=== PATIENT | male | born 1965 | race Caucasian/White ===

== ENCOUNTER 2021-08-06 08:20 | Emergency (ER) | payer OTHER ==
[~2021-08-06] VITALS: Ht 177.8 cm; Wt 102.1 kg
--- NOTE | 2021-08-06 08:41 | ED Lower Extremity ---
General Chief Complaint: Lower Extremity Stated Complaint: RT ANKLE INJ Source: patient History of Present Illness Date Seen by Provider: Aug 06, 2021 Time Seen by Provider: 08:24 Initial Comments 55-year-old male presenting with right foot pain after rolling his ankle last night. He states that he was having some discomfort after he had rolled his ankle last Wednesday. Last night he had rolled his ankle again and 2 hours after that he had pain to the point that he was unable to bear weight. He has tried his chronic Ibuprofen medicine for pain with little to no improvement. He also has tried heat without significant improvement. he has had some chronic swelling to the ankle since he had an infection in the ankle several years ago. He denies hitting his head or having other injuries with rolling his ankle last night. Onset: yesterday Severity: moderate Pain/Injury Location: right foot, right ankle Method of Injury: twisted (rolled ankle) Modifying Factors: Worse With Movement, Worse With Other (trying to bear weight) Allergies and Home Medications Allergies Coded Allergies: omeprazole (Verified Allergy, Unknown, Rash, 08/06/21) Patient Home Medication List Home Medication List Reviewed: Yes Hydrocodone/Acetaminophen (Hydrocodone-Acetamin 5-325 mg) 1 Each Tablet, 1 TAB PO Q6H PRN for PAIN-SEVERE (8-10) Prescribed by: QIANA ROSS on 08/06/21 0950 Review of Systems Constitutional: No chills, No fever EENTM: no symptoms reported Respiratory: no symptoms reported Cardiovascular: no symptoms reported Gastrointestinal: no symptoms reported Genitourinary: no symptoms reported Musculoskeletal: see HPI, other (pain in right foot since he rolled his ankle) Skin: change in color (mild erythema to lateral foot) Psychiatric/Neurological: Paresthesia (tingling in toes since injury last night) Past Bcclfsd-Tfnexq-Tmhrjx Hx Patient Social History Tobacco Use?: No Past Medical History Surgeries: Yes Orthopedic Physical Exam Vital Signs Vital Signs - First Documented 08/06/21 08/06/21 08:24 09:54 Temp 36.4 Pulse 79 Resp 16 B/P (MAP) 144/87 (106) Pulse Ox 97 O2 Delivery Room Air Capillary Refill : Height, Weight, BMI Height: '" Weight: lbs. oz. 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, alert, oriented x 3 Skin: warm/dry, other (mild erythema to lateral foot but no tenderness over 5th metatarsal) Progress/Results/Core Measures Results/Orders My Orders Orders - QIANA ROSS MD Foot 3 View Right (08/06/21 08:34) Ankle 3 View Right (08/06/21 08:34) Elevate Affected Extremity (08/06/21 08:35) Hydrocodone/Apap 5/325 Tablet (Lortab 5 (08/06/21 09:46) Post-Op Shoe (08/06/21 09:46) Vital Signs/I&O 08/06/21 08/06/21 08:24 09:54 Temp 36.4 Pulse 79 86 Resp 16 18 B/P (MAP) 144/87 (106) 137/79 Pulse Ox 97 O2 Delivery Room Air Room Air Progress Progress Note #1: Progress Note Obtain x-ray of the right foot and ankle. Progress Note #2: Progress Note He had no definite acute fracture or dislocation on his x-rays of his foot or ankle. Treat symptomatically with postop shoe and weightbearing as tolerated. Prescribe a few hydrocodone for severe pain. Counseled to check back with his primary and they may have to order an MRI or referral to orthopedics or podiatry about his foot. Diagnostic Imaging Diagonstic Imaging: Xray Plain Films/CT/US/NM/MRI: ankle Comments [facility], [place] NAME: [facility] REC#: [id number] PT STATUS: DEP ER : 1965 PHYSICIAN: QIANA ROSS MD ADMIT DATE: 08/06/21/ER FS Signed Date of Exam:08/06/21 ANKLE 3 VIEW RIGHT INDICATION: Right ankle injury with pain. AP, oblique and lateral views of the right ankle are obtained. No acute fracture or malalignment is identified. Ankle mortise appears to be maintained. There is no lytic or sclerotic focus. Diffuse swelling is present. IMPRESSION: Ankle swelling may indicate underlying ligamentous injury however no acute osseous abnormality is seen. Dictated by: Dictated on workstation # [id number] Dict: 08/06/21 0851 Trans: 08/06/21 130 CV [id number] Interpreted by: CHECO AREVALO MD Electronically signed by: CHECO AREVALO MD 08/06/21 1302 Reviewed: Reviewed by Me Diagonstic Imaging: Xray Plain Films/CT/US/NM/MRI: other (Right foot) Comments [facility], [place] NAME: [facility] REC#: [id number] PT STATUS: REG ER : 1965 PHYSICIAN: QIANA ROSS MD ADMIT DATE: 08/06/21/ER FS Draft Date of Exam:08/06/21 FOOT 3 VIEW RIGHT INDICATION: Right foot pain and injury. TIME OF EXAM: 8:43 AM 3 views of the right foot were obtained. The metatarsals appear to be intact. The phalanges are intact. Midfoot demonstrates some well-corticated osseous densities along the dorsum of the midfoot at the level of the navicular bone, likely old avulsion fragments. No acute fractures are identified. IMPRESSION: Chronic changes. No acute bony abnormality is detected. Dictated on workstation # [id number] Dict: 08/06/21 0852 Trans: 08/06/21 0913 CV [id number] Interpreted by: ZELDA RONQUILLO MD Electronically signed by: Reviewed: Reviewed by Me Departure Impression Primary Impression: Acute pain of right foot Additional Impression: Unspecified sprain of right foot, initial encounter Disposition: 01 HOME, SELF-CARE Condition: Stable Departure-Patient Inst. Decision time for Depature: 09:47 Referrals: KAREN GARCIA MD (PCP/Family) Primary Care Physician Patient Instructions: Foot Sprain ED, Using Cold for Pain, Opioids for Short- Term Treatment of Pain ED Add. Discharge Instructions: Use the postop shoe to stabilize your foot and limit movement. Try to ice and elevate your foot to help with pain. Continue with your ibuprofen for chronic pain and inflammation. For acute severe pain use the hydrocodone. If your symptoms are not improving over the next 5 to 10 days check back with your primary provider as they may need to order an MRI or have you see orthopedics or podiatry about your foot. All discharge instructions reviewed with patient and/or family. Voiced understanding. Scripts Hydrocodone/Acetaminophen (Hydrocodone-Acetamin 5-325 mg) 1 Each Tablet 1 TAB PO Q6H PRN for PAIN-SEVERE (8-10) for 5 Days, #20 TAB 0 Refills Prov: QIANA ROSS MD 08/06/21 QIANA ROSS MD Aug 06, 2021 08:41
--- NOTE | 2021-08-06 08:55 | Diagnostic Imaging Report ---
INDICATION: Right ankle injury with pain. AP, oblique and lateral views of the right ankle are obtained. No acute fracture or malalignment is identified. Ankle mortise appears to be maintained. There is no lytic or sclerotic focus. Diffuse swelling is present. IMPRESSION: Ankle swelling may indicate underlying ligamentous injury however no acute osseous abnormality is seen. Dictated by: Dictated on workstation # [id number]
--- NOTE | 2021-08-06 09:14 | Diagnostic Imaging Report ---
INDICATION: Right foot pain and injury. TIME OF EXAM: 8:43 AM 3 views of the right foot were obtained. The metatarsals appear to be intact. The phalanges are intact. Midfoot demonstrates some well-corticated osseous densities along the dorsum of the midfoot at the level of the navicular bone, likely old avulsion fragments. No acute fractures are identified. IMPRESSION: Chronic changes. No acute bony abnormality is detected. Dictated by: Dictated on workstation # [id number]
[2021-08-06] MEDS ORDERED: HYDROcodone/APAP 5 MG/325 MG (LORTAB) TAB PO STA (09:46)
[2021-08-06] MEDS ORDERED: ACHD5005 PO (09:49)
[2021-08-06 09:54] VITALS: BP 137/79
== END 2021-08-06 09:54 | disposition home or self-care (01) ==
LOC: ER FS 08:22
DX: S93.601A Unspecified sprain of right foot, initial encounter (principal); X50.1XXA Overexertion from prolonged static or awkward postures, initial encounter
CPT/HCPCS: 73610; 73630